=== PATIENT | female | born 1970 | race Caucasian/White ===

== ENCOUNTER 2020-09-20 15:31 | Emergency (ER) | payer OTHER ==
[~2020-09-20] VITALS: Ht 170.2 cm; Wt 90.7 kg
[~2020-09-20 15:31] MED LIST: ACEBUTCAFT PO; ALBU90OI INH; ALPR.5; AZIT250 PO; BENZ100A PO; CEPH500 PO; CHLO5; CIPR500 PO; CITA10S PO; CITA20 PO; CLIN300 PO; CODBUTACEC PO; CYCL10 PO; DIAZ5 PO; ESCI20; HEMOTOB PR; HYDACE10B PO; HYDACE25S PR; HYDACE5 PO; IBUP200; IBUP400 PO; IBUP800 PO; LORA.5 PO; LORA1 PO; NAPR500 PO; NAPR550 PO; OLAN5 PO; ONDA4ODT MM; ORACONA PO; OXYACE5T PO; PENVK500 PO; PHENA200 PO; PRAHYD1AE TOP; PROM25 PO; QUET300 PO; RXHYDACE PO; RXONDA4ODT MM; RXPROM25 PO; SULTRIDS PO; TRAM50 PO; TRAZ100 PO; TRAZ50 PO; Ultram50 MG PO; Veetids 500500 MG PO
[2020-09-20] MEDS ORDERED: Bactrim Ds Tab1 EACH PO (16:25)
[2020-09-20] MEDS ORDERED: CEPH500 PO (16:25)
[2020-10-10] MEDS ORDERED: CEPH500 PO (03:18)
[2020-10-10] MEDS ORDERED: Bactrim Ds Tab1 EACH PO (03:18)
== END 2020-09-20 16:32 | disposition left against medical advice (07) ==
LOC: ER 15:31
DX: L03.116 Cellulitis of left lower limb (principal); Z88.1 Allergy status to other antibiotic agents; Z79.899 Other long term (current) drug therapy; Z88.8 Allergy status to other drugs, medicaments and biological substances
CPT/HCPCS: 99283

== ENCOUNTER 2020-10-10 02:02 | Emergency (ER) | payer OTHER | END 2020-10-10 03:33 | disposition home or self-care (01) | LOC: ER 02:02 | DX: L03.116 Cellulitis of left lower limb (principal); F17.200 Nicotine dependence, unspecified, uncomplicated ==